=== PATIENT | male | born 1995 | race African-American/Black ===

== ENCOUNTER 2017-10-10 22:23 | Emergency (ER) | payer SELFPAY | END 2017-10-10 23:19 | disposition left against medical advice (07) | LOC: ER 22:23 | DX: R06.02 Shortness of breath (principal); Z53.21 Procedure and treatment not carried out due to patient leaving prior to being seen by health care provider ==

== ENCOUNTER 2018-05-07 03:45 | Emergency (ER) | payer MEDICAID, OTHER ==
[~2018-05-07] VITALS: Ht 190.5 cm; Wt 91.0 kg
[2018-05-07] MEDS ORDERED: ONDANSETRON 4MG ODT PO ONE (05:30)
[2018-05-07] MEDS ORDERED: HYDROCODONE/ACETAMINOPHEN 5/325MG TABLET PO ONE (05:30)
[2018-05-07] MEDS ORDERED: MORPHINE SULFATE 10 MG/ML CPJ IM ONE (06:45)
[2018-05-07] MEDS ORDERED: MORPHINE SULFATE 4 MG/ML CPJ (NOT FOR IM USE) IV STA (09:07)
[2018-05-07] MEDS ORDERED: ONDANSETRON HCL 4MG/2ML VIAL IV STA (09:09)
[2018-05-07] MEDS ORDERED: KETOROLAC 30MG/ML VIAL IV ONE (11:15)
[2018-05-07 14:25] VITALS: BP 122/84
== END 2018-05-07 14:43 | disposition home or self-care (01) ==
LOC: ER 03:45
DX: S53.124A Posterior dislocation of right ulnohumeral joint, initial encounter (principal); S00.83XA Contusion of other part of head, initial encounter; S50.311A Abrasion of right elbow, initial encounter; Y04.0XXA Assault by unarmed brawl or fight, initial encounter; Y93.89 Activity, other specified; Y92.9 Unspecified place or not applicable
CPT/HCPCS: 24600; 70450; 72125; 73060; 73070; 73090; 93005; 96372; 96374; 96375; 99284; J1885; J2270; J2405; Q0162; Z7610; A4565